=== PATIENT | female | born 1980 | race Caucasian/White ===

== ENCOUNTER 2017-06-26 09:45 | Inpatient (IN) | payer OTHER ==
[~2017-06-26] VITALS: Ht 165.1 cm; Wt 61.2 kg
[2017-06-26] MEDS ORDERED: MULTI VITAMIN1 EACH PO (12:11)
[2017-06-26] MEDS ORDERED: BIOTIN5 MG PO (12:12)
[2017-07-04] MEDS ORDERED: KETO10TA2 PO (07:01)
[2017-07-04] MEDS ORDERED: GAS-X125 MG PO (07:01)
[2017-07-04] MEDS ORDERED: LEVSIN/SL0.125 MG PO (07:02)
== END 2017-07-04 11:36 | disposition home or self-care (01) | DRG 331 ==
LOC: ADM 09:45 → EDSTATUS 09:45 → SURH 06-30 06:10 → O/R 06-30 06:10 → SURH 06-30 09:45
PROVIDERS: Surgery
PROC: 07TC4ZZ Resection of Pelvis Lymphatic, Percutaneous Endoscopic Approach (ICD-10-PCS; 2017-06-30)
PROC: 0DTN4ZZ Resection of Sigmoid Colon, Percutaneous Endoscopic Approach (ICD-10-PCS; principal; 2017-06-30 13:00)
DX: C19 Malignant neoplasm of rectosigmoid junction (principal); D64.89 Other specified anemias

== ENCOUNTER 2018-06-15 09:36 | Day surgery (SDC) | payer OTHER ==
[~2018-06-15 09:36] MED LIST: BIOTIN5 MG PO; GAS-X125 MG PO; KETO10TA2 PO; LEVSIN/SL0.125 MG PO; MULTI VITAMIN1 EACH PO
== END 2018-06-15 16:20 | disposition home or self-care (01) ==
LOC: CIR.AMB 09:36 → AMB-ENDOS 09:36
DX: R19.8 Other specified symptoms and signs involving the digestive system and abdomen (principal)

== ENCOUNTER 2019-12-23 06:56 | Day surgery (SDC) | payer OTHER | END 2019-12-23 11:09 | disposition home or self-care (01) | LOC: AMB-ENDOS 06:56 | PROVIDERS: ATTEND Surgery | DX: K62.89 Other specified diseases of anus and rectum (principal); Z20.828 Contact with and (suspected) exposure to other viral communicable diseases ==